=== PATIENT | female | born 1950 | race Caucasian/White ===

== ENCOUNTER 2018-07-10 11:30 | Inpatient (IN) ==
[2018-07-10] MEDS ORDERED: Zolpidem Tartrate 5 MG Tablet PO PRN (11:44)
[2018-07-10] MEDS ORDERED: Post-op Orders (for Pharmacy) OTHER STA (11:44)
[2018-07-10] MEDS ORDERED: Bisacodyl 10 MG Supp RECTAL PRN (11:44)
[2018-07-10] MEDS ORDERED: HYDROmorphone PF Inj 1 MG/ML Ampul IV.PUSH PRN (11:44)
[2018-07-10] MEDS ORDERED: Dexamethasone Inj 20 MG/5 ML Vial IV.PUSH ONE (12:37)
[2018-07-10] MEDS ORDERED: Dexamethasone PF Inj 10 MG/ML Vial ONE (12:43)
[2018-07-10] MEDS ORDERED: Chlorhexidine Gluconate 2% 1 Pack (2 Cloths) TOPICAL ONE (12:45)
[2018-07-10] MEDS ORDERED: Metoprolol Tartrate 25 MG Tablet PO ONE (12:45)
[2018-07-10] MEDS ORDERED: Sodium Chlor 0.9% Inj 500 ML IV.CONT ONE (12:45)
[2018-07-10] MEDS ORDERED: Chlorhexidine 4% Topical 120 APPLIC/120 ML Bottle TOPICAL SCH (12:45)
[2018-07-10] MEDS ORDERED: TRANEXAMIC ACID IV.SIG SCH (13:00)
[2018-07-10] MEDS ORDERED: Tranexamic Acid Inj 3,000 MG in Sodium Chlor 0.9% Inj 100 ML P-ARTICULR SCH (13:00)
[2018-07-10] MEDS ORDERED: Vancomycin Inj 1,000 MG in Sodium Chlor 0.9% Inj 250 ML IV.SIG SCH (13:00)
[2018-07-10] MEDS ORDERED: Sodium Chlor 0.9% Inj 73.07 ML, Ropivacaine 0.5% PF Inj 24.63 ML, Ketorolac Inj 30 MG, ... P-ARTICULR SCH ×5 (13:00)
[2018-07-10] MEDS ORDERED: ceFAZolin 2 GM Premix Inj 2 GM/50 ML PIGGYBACK IV.SIG SCH (13:00)
[2018-07-10] MEDS ORDERED: SODIUM CHLOR 0.9% IV.SIG SCH (13:00)
[2018-07-10] MEDS ORDERED: Ropivacaine 0.5% PF Inj 20 ML Vial ONE (13:39)
[2018-07-10] MEDS ORDERED: Propofol Inj 500 MG/50 ML Vial ONE (14:12)
[2018-07-10] MEDS ORDERED: Phenylephrine/NS 1000 MCG/10ML Syringe IV.PUSH ONE (14:51)
--- NOTE | 2018-07-10 16:41 | P.OP ---
Procedure: PREOPERATIVE DIAGNOSIS: Right knee osteoarthritis. POSTOPERATIVE DIAGNOSIS: Right knee osteoarthritis. PROCEDURE PERFORMED: Right total knee arthroplasty. SURGEON: Dr. Enmanuel Barros M.D. DIGITAL MEDIA DESIGNER: CHLOE Carrillo. ANESTHESIA: General with adductor canal femoral nerve block ESTIMATED BLOOD LOSS: 100 mL. COMPLICATIONS: None. IMPLANTS USED: Andrez size5 cemented femur [] Andrez triathlon titanium size 4 tibia baseplate [] 11 mm polyethylene insert [] 35 mm patella [] Justification: The patient presents to the undersigned at [facility] with chief complaints of severe right knee pain. The pain is severe progressive and interferes with activities of daily living. The patient has failed greater than 3 months of nonoperative conservative treatment to include nonsteroidal anti-inflammatory medications, analgesic medications, physical therapy, cortisone injection, home exercise program, activity modification, ambulatory assistive aids, and weight loss. X-rays of the right knee reveal severe end-stage osteoarthritis with joint space narrowing, subchondral sclerosis, subchondral cysts, osteophyte formation, deformity with subluxation. The patient was counseled as to the risks, benefits, alternatives to a total knee arthroplasty. The risks were discussed which include but are not limited to, anesthesia, bleeding, infection, damage to nerves and blood vessels, continued pain, stiffness, failure of implants, blood clots, pulmonary embolism , and even . The patient's pain is severe and favors benefits over risk. The patient does wish to proceed with surgery as outlined above. Procedure in detail: Written consent has been obtained from the patient. The patient was identified and taken to the operating room. The patient was placed supine on the operating room table. General anesthesia was administered to the patient as well as an adductor canal femoral nerve block. The patient was administered preoperative IV antibiotic. A well-padded tourniquet was placed in the right thigh. The right lower extremity was prepped and draped using isopropyl alcohol , Hibiclens solution, and ChloraPrep solution. After a timeout was performed an Esmarch bandage was used to exsanguinate the right lower extremity. The tourniquet was inflated to 250 mmHg. A longitudinal incision was made over the anterior aspect of the right knee. A medial parapatellar arthrotomy was performed. The patella was everted. A patellar resection guide was used to assist with patellar resection. The patella drill guide was then placed to allow for 3 drill holes within the patella. The patella trial fit well. Attention was then turned to the femur where a intramedullary guide barb was placed. The distal femoral guide was set to remove 10 mm of distal femur 5 degrees off the anatomic valgus axis alignment. An oscillating saw was used to perform the distal femoral cut. Attention was then turned to the tibia where extramedullary tibia guide was set to remove 5 mm off the lowest portion of the medial tibial plateau. The tibial guide was pinned in place and the tibial cut was performed. A 9 mm spacer block showed full extension. Attention was turned back to the femur with the AP sizing block used to assist with appropriate measurement and placement of the 3 degree external rotation AP cutting guide. The anterior, posterior and chamfer cuts were then performed. The medial and lateral meniscus remnants were removed as well as bone and soft tissue debris from the posterior portion of the knee. A tibia baseplate was then pinned in place and the tibia was drilled and punched. Trial components were evaluated and final components were then cemented in place. With the final components implanted the knee could achieve full extension to 0 degrees and flexion to 140, with no evidence of tibial liftoff. The testing of varus valgus balance appeared appropriate and symmetric with good stability. The patella was noted to track centrally. The tourniquet was deflated Bovie cautery was then used for hemostasis. The knee was then thoroughly irrigated with sterile saline pulse lavage antibiotic impregnated solution. The arthrotomy incision was closed with #1 Vicryl suture. The subcutaneous layer closed with 2-0 Vicryl suture. The skin incision was then closed with Dermabond. Sterile dressings were applied. The patient tolerated the procedure well with no intraoperative complications noted. Enmanuel Lawson physician kindergarten assistant certified was present during the entire procedure to include patient positioning and the procedure itself. The medical necessity of a physician kindergarten assistant was indicated in this case due to the complexity of the procedure itself. He assisted with appropriate manipulation of the leg and also retraction of the muscle, tendon, bone and neurovascular structures. He assisted with preparation of bone and also implantation of the prosthetic replacement. There was a lab technologist within the room that was focused on handling of instruments but was not available to assist with the actual surgery itself. Surgeon: Enmanuel Nava MD
[2018-07-10] MEDS ORDERED: *Meperidine Inj 25 MG/ML Vial PERIprocedural Use ONLY ONE (17:01)
--- NOTE | 2018-07-10 17:20 | XR ---
EXAM DATE: 07/10/2018 5:18 PM EST AGE/SEX: 68 years / Female INDICATIONS: Post op right total knee CLINICAL DATA: This is the patient's initial encounter. Patient reports that signs and symptoms have been present for 1 day and indicates a pain score of 9/10. MEDICAL/SURGICAL HISTORY: None. . Total right knee COMPARISON: No prior exams available for comparison. FINDINGS: Status post knee prosthesis. There is good position and alignment of the prosthesis with the bony str uctures. The bony structures are grossly intact. Postsurgical changes are present. CONCLUSION: Good position and alignment on this postoperative study. Electronically signed by: Og Blanco MD Board Certified Radiologist 07/10/2018 5:19 PM EST
[2018-07-10] MEDS ORDERED: *morphine SULFATE 10 MG/ML PERIprocedure ONLY ONE (17:26)
[2018-07-10] MEDS ORDERED: *Ondansetron Inj 4 MG/2 ML Vial PERIprocedural Use ONLY ONE (17:26)
[2018-07-10] MEDS: Senna/Docusate Sodium 8.6/50 MG Tablet PO SCH (21:41)
[2018-07-10] MEDS: Multivitamin/Minerals Therapeutic Tablet PO SCH (21:41)
[2018-07-10] MEDS: ceFAZolin 2 GM Premix Inj 2 GM/50 ML PIGGYBACK IV.SIG SCH (21:56)
[2018-07-11] MEDS: ceFAZolin 2 GM Premix Inj 2 GM/50 ML PIGGYBACK IV.SIG SCH ×2 (03:10→09:11)
[2018-07-11 06:37] LABS: Hematocrit 36.6 % (35.0-46.0); Hemoglobin 12.6 gm/dL (11.6-15.3)
--- NOTE | 2018-07-11 09:00 | P.PNOP ---
Subjective Interval history: doing well. Pain controlled. Physical Exam Vital signs: Vital Signs 07/10/18 12:23 07/10/18 12:40 07/10/18 16:56 Temperature 98.2 F 98.4 F Pulse Rate 70 64 86 Respiratory Rate 16 22 Blood Pressure 130/69 92/56 L Pulse Oximetry 98 100 95 07/10/18 17:00 07/10/18 17:15 07/10/18 17:30 Temperature Pulse Rate 78 72 64 Respiratory Rate 14 21 19 Blood Pressure 106/57 L 102/58 L 101/59 L Pulse Oximetry 96 95 96 07/10/18 17:45 07/10/18 17:52 07/10/18 18:00 Temperature Pulse Rate 61 65 Respiratory Rate 20 18 Blood Pressure 99/55 L 101/50 L Pulse Oximetry 95 96 96 07/10/18 18:30 07/10/18 19:30 07/10/18 19:48 Temperature 97.9 F Pulse Rate 62 70 Respiratory Rate 16 20 Blood Pressure 109/56 L 110/64 Pulse Oximetry 96 97 98 07/10/18 20:00 07/11/18 01:30 07/11/18 02:00 Temperature 97.8 F 97.7 F Pulse Rate 74 70 Respiratory Rate 18 16 17 Blood Pressure 109/62 98/55 L Pulse Oximetry 92 L 94 L 07/11/18 05:15 Temperature 97.9 F Pulse Rate 78 Respiratory Rate 17 Blood Pressure 92/53 L Pulse Oximetry 95 Intake & Output 07/10/18 07/11/18 07/11/18 18:59 06:59 18:59 Intake Total 1509.78 / 1509.78 700 / 700 Output Total 100 / 100 Balance 1409.78 / 1409.78 700 / 700 Weight 65.2 kg 64.8 kg Intake: IV 409.78 / 409.78 100 / 100 Cyklokapron Inj 978 MG In NS 109.78 / 109.78 Inj 100 ML @ 200 mls/hr IV.SIG SET UP MOLD TECHNICIAN ANDREA Rx#:[id number] Vancomycin Inj 1,000 MG In NS 250 / 250 Inj 250 ML @ 250 mls/hr IV.SIG SET UP MOLD TECHNICIAN ANDREA Rx#:[id number] Ancef 2 GM Premix Inj 2 gm In 50 / 50 100 / 100 50 ml @ 100 mls/hr IV.SIG Q6H ANDREA Rx#:[id number] Oral 600 / 600 Anesthesia Amount 1100 / 1100 Output: Estimated Blood Loss 100 / 100 Other: # Voids 1 # Bowel Movements 0 Weight On Admission 65.2 kg Narrative: in bed, nad dressing c/d/i neg homamaryellen nvi Results - Labs CBC & Chem 7: 07/11/18 06:13 Laboratory Results - last 24 hr 07/10/18 07/11/18 12:18 06:13 Hgb 12.6 Hct 36.6 Blood Type A Positive Blood Type Recheck Not needed Antibody Screen Negative - Imaging Impressions Knee X-Ray 07/10/18 11:44 CONCLUSION: Good position and alignment on this postoperative study. Assessment and Plan - Ortho Post Op Day # 1 - Assessment and Plan s/p R TKA wbat maintain dressing asa 81 d/c planning home with [facility] and pt - cleared today if does well in PT f/up dr. garcia 2 weeks
--- NOTE | 2018-07-11 09:01 | P.DCO ---
- Physical Therapy Physical Therapy: Gait training, Safety evaluation, Transfer training, bed to chair Knee: Total knee, Protocol: Right, Full weight bearing Right Lower Extremity Weight Bearing: Weight bearing as tolerated - Nursing RN days per week: 1 Nursing: Dressing changes - Case Management Consult Case Management Consult-Home Health: Yes - Certification Need for Home Health services: I have seen patient Becky Smith on 07/11/18. My clinical findings support the need for the requested home health care services because: Need for Home Health Services: Limited ability to care for self, High risk of falls Homebound Certification: I certify that my clinical findings support that this patient is homebound because: Homebound Certification: Post-op weakness, Unsteady gait/balance
[2018-07-11] MEDS: Senna/Docusate Sodium 8.6/50 MG Tablet PO SCH (09:09)
[2018-07-11] MEDS: Multivitamin/Minerals Therapeutic Tablet PO SCH (09:09)
[2018-07-11 14:23] VITALS: BP 113/59; PULSE 72; RESP 21; TEMP 97.3; O2SAT 92
--- NOTE | 2018-07-12 15:18 | MD ---
cc: Enmanuel Nava MD DATE OF DISCHARGE: 07/11/2018 ADMITTING DIAGNOSIS: Severe degenerative osteoarthritis, right knee. DISCHARGE DIAGNOSIS: Severe degenerative osteoarthritis, right knee. HISTORY OF PRESENT ILLNESS: This is a 68-year-old who [facility] for evaluation by Dr. Enmanuel Nava regarding severe and progressive right knee pain. The patient states the pain is limiting her activities of daily living. She has a severe aching sensation with weightbearing activities. She has no alleviating factors, although she has tried medications, assistive devices, physical therapy, home exercise program as well as corticosteroid injection without relief of symptoms. She has x-ray evidence of severe degenerative change of the right knee joint. While in the office, the patient was counseled on her diagnosis and treatment options. Risks, benefits, and indications discussed. The patient did elect to proceed with surgical intervention to the right total knee arthroplasty. Date of surgery 07/10/2018; right total knee arthroplasty. POSTOPERATIVE: After surgery, the patient admitted to [facility] where she received appropriate medical management, pain control, DVT prophylaxis, as well as physical therapy. DISCHARGE: Once being discharged from the hospital, the patient is going to go home where she will receive home health care and home physical therapist. She is in stable condition. She may weight bear as tolerated. She has been instructed on wound care management. She has been provided prescriptions for pain control and DVT prophylaxis. She has also been provided a followup 2 weeks from date of surgery. The patient asked appropriate questions, which have been answered. Dictated by GARY Carrillo Enmanuel Nava MD JWM/carol , 01:26 PM , 01:31 PM
== END 2018-07-11 15:20 | disposition home health service (06) | DRG 470 ==
LOC: HSDI 11:30 → N06 19:50
PROVIDERS: ADMIT Orthopaedic Surgery Sports Medicine; ATTEND Orthopaedic Surgery Sports Medicine
DX: M17.11 Unilateral primary osteoarthritis, right knee
CPT/HCPCS: 73560; 85014; 85018; 86850; 86900; 86901; 94150; 97150; 97162; 97167; C1776; J0131; J0171; J0690; J0735; J1100; J1580; J1885; J2175; J2250; J2270; J2370; J2405; J2704; J2795; J3370; J7050; J7120; L1830